=== PATIENT | male | born 1955 | race Caucasian/White ===

== ENCOUNTER 2019-03-15 13:04 | Day surgery (SDC) | payer OTHER, SELFPAY ==
--- NOTE | 2019-03-15 | PATH_ITS ---
[facility] Accession Number: [id number] . 01 Material submitted: . PART A: gastrointestinal site - ANTRAL BIOPSY PART B: esophagus, E-G Junction - GE JUNCTION BIOPSIES . 01 Clinical history: . EGD W/BXS A. FOR H. PYLORI . 02 Diagnosis: A. Biopsy, Gastric Antrum: Antral mucosa with hyperemia, but negative for significant inflammation. Negative for evidence of Helicobacter on H/E stain. Negative for intestinal metaplasia. Negative for dysplasia and malignancy. . B. Specimen Designated Gastroesophageal Junction, Biopsy: Fragments of gastric mucosa consistent with cardia and fundus with no squamous epithelium identified. Focal minimal chronic inflammation, but negative for evidence of Helicobacter on H/E stain. Negative for intestinal metaplasia. Negative for dysplasia and malignancy. [facility]/03/16/2019 . 02 Electronically signed: . Doroteo Galdamez MD, Pathologist NPI- [id number] . 01 Gross description: . Part A: ANTRAL BIOPSY: Received in formalin are 2 fragment(s) of valladares, soft tissue measuring 0.1 x 0.1 x 0.1 cm to 0.2 x 0.1 x 0.1 cm which is entirely submitted and submitted entirely in 1 cassette(s) Part B: GE JUNCTION BIOPSIES: Received in formalin are 4 fragment(s) of valladares, soft tissue measuring 0.1 x 0.1 x 0.1 cm to 0.3 x 0.2 x 0.2 cm which is entirely submitted and submitted entirely in 1 cassette(s) /DMC /DMC . 02 Pathologist provided ICD-10: R13.10 . 02 CPT . 179426, [id number] Performed at: 01 [facility] [address] [place] [address] [address], [place] [id number] MD Papito Molina MD Phone: [phone] Performed at: 02 [facility] [address] [place] [id number] MD Nayla Doty MD Phone: [phone]
[2019-03-15 13:41] VITALS: BP 152/89; PULSE 58; RESP 15; TEMP 37.2; O2SAT 97; BMI 29.0
--- NOTE | 2019-03-15 13:45 | PM.HP.1 ---
History of Present Illness Date Patient Seen: 03/15/19 Time Patient Seen: 13:45 Chief complaint: 00675 EGD W/BX'S Narrative: 63yo M with about 3 years of severe reflux. Had never had previously and had an onset during a stressful time of work. Has been on PPIs which work well but failed a trial off. Referred for EGD. Has a constantly dry throat and has for years, attributes to post nasal drip due to his allergies. Notices hoarseness at times but seems to correlate with allergies, as well. Overweight but not obese, no coffee but drinks a daily mountain dew. No specific food triggers that he has noticed. Has mild MIGUELANGEL and a fib s/p ablation so it not on anti-coagulants. Patient History Medical History Acid reflux (Chronic) Afib (Chronic) Tachycardia (Chronic) Surgical History H/O cardiac radiofrequency ablation (Resolved) H/O knee surgery (Resolved) History of tonsillectomy (Resolved) Social History household members: family occupational status: employed Smoking Status: Never smoker alcohol intake: never substance use type: does not use Family & Social History Social History: household members family Tobacco & Substance use: Smoking Status Never smoker alcohol intake never Meds Home Medications Medication Instructions Recorded Confirmed Type multivitamin tablet 1 tab PO DAILY 01/18/19 03/15/19 History omeprazole magnesium 20 mg 20 mg PO DAILY 01/18/19 03/15/19 History tablet,delayed release Allergies Allergy/AdvReac Type Severity Reaction Status Date / Time No Known Drug Allergies Allergy Verified 03/15/19 13:40 Review of Systems Constitutional Constitutional: Reports as per HPI Exam Narrative Exam Narrative: AAO, NAD, obese male EOMI, MMM, no scleral icterus unlabored RA soft, nt/nd MAEW visible skin dry and intact Assessment & Plan (1) GERD (gastroesophageal reflux disease): Current visit: Yes Status: Acute Assessment & Plan narrative: - plan for EGD --> all R/B/A discussed and pt wishes to proceed --> will check Melissa, pt has held PPI 48 hrs prior; notes he has not had reflux since then
[2019-03-15] MEDS: SODIUM CHLORIDE 0.9% 1,000 ML 200 ML IV (13:51)
[2019-03-15] MEDS: LIDOCAINE 4% SOLN 50 ML 20 ML TOP (14:47)
[2019-03-15] MEDS: TETRACAINE/BENZOCAINE/BUTAMBEN (CETACAINE) BOTTLE 1 SPRAY TOP (14:48)
--- NOTE | 2019-03-15 15:01 | PM.OP.ENDO ---
Operative Date/Time/Diagnoses Date of procedure: 03/15/19 Time of procedure: 15:01 Pre-op diagnosis: Refractory GERD Post-op diagnosis: same Procedure & Clinicians Study performed: Diagnostic EGD with biopsies Same procedure as scheduled: Yes Indications: 63yo M with refractory GERD for diagnostic EGD. Surgeon: Cynthia Nicholson Procedure Notes SCOAP/Timeout: 1448 Procedure in detail: After obtaining informed consent, the patient was brought to the GI suite and placed in the left lateral decubitus position on the examination table. After placement of appropriate monitors, the patient was given incremental doses of Versed and Fentanyl until an appropriate level of sedation was achieved. A time out was held per SCOAP protocol. A bite block was gently placed between the patient's teeth. The endoscope was lubricated and then passed into the patient's posterior oropharynx. The esophagus was cannulated under direct vision and the scope was passed to the second portion of the duodenum without difficulty. The scope was then withdrawn with careful examination of all areas of the upper GI tract and mucosa. In the stomach, the instrument was retroflexed and the GE junction examined. The scope was straightened and the procedure continued with examination of the remainder of the upper GI tract. Findings include mild gastritis, primarily around the antrum; biopsies sent for H pylori testing. Pt also has a small hiatal hernia and mild GEJ esophagitis, the latter is also biopsied. Air was aspirated from the stomach and the endoscope gently removed from the esophagus. The patient was allowed to awaken from sedation without difficulty and taken to the post-anesthesia care unit in good condition. Scope withdrawal time: n/a Sedation minutes: 11 Findings: gastritis (mild, chronic), hiatal hernia (small) and other findings (esophagitis- mild, at GEJ) Specimen(s): other (1. Antral biopsy for H pylori testing 2. GEJ biopsies for esophagitis) Complications: none Impression: 1. Mild chronic appearing gastritis, primarily of antrum 2. Mild esophagitis at GEJ, not suspicious for Rush's in appearance 3. Small hiatal hernia Recommendations: Reflux diet and Continue medication(s) Follow up: weeks Disposition: PACU
[2019-03-15] MEDS: fentaNYL 250 MCG/5 ML INJ IV (15:04)
[2019-03-15] MEDS: MIDAZOLAM 5 MG/5 ML VIAL IV (15:04)
[2019-03-15 15:07] VITALS: BP 131/87; PULSE 60; RESP 18; TEMP 36.7; O2SAT 95
[2019-03-15 15:12] VITALS: BP 134/87; PULSE 57; RESP 16; O2SAT 97
[2019-03-15 15:17] VITALS: BP 117/66; PULSE 58; RESP 12; O2SAT 96
[2019-03-15 15:28] VITALS: BP 126/86; PULSE 60; RESP 15; TEMP 36.3; O2SAT 95
[2019-03-15 15:43] VITALS: BP 112/65; PULSE 54; RESP 16; TEMP 36.1; O2SAT 97
== END 2019-03-15 15:58 | disposition home or self-care (01) ==
PROVIDERS: PCP Family Medicine; Visit Provider Surgery
PROC: 0DJ08ZZ Inspection of Upper Intestinal Tract, Via Natural or Artificial Opening Endoscopic (ICD-10-PCS; CPT 43235; principal; 2019-03-15 15:00)
DX: K29.70 Gastritis, unspecified, without bleeding (principal); K21.9 Gastro-esophageal reflux disease without esophagitis; K44.9 Diaphragmatic hernia without obstruction or gangrene; I48.91 Unspecified atrial fibrillation
CPT/HCPCS: 43239; 99152; J2250; J3010